=== PATIENT | female | born 1995 | race Caucasian/White ===

== ENCOUNTER 2017-03-02 02:53 | Inpatient (IN) ==
[2017-03-02] MEDS ORDERED: HUMALOG IV ONE (03:00)
[2017-03-02] MEDS ORDERED: NS 1,000 ML IV ONE ×2 (03:01→05:01)
[2017-03-02] MEDS ORDERED: NS 1,000 ML ONE (03:13)
[2017-03-02 03:24] LABS: MANUAL DIFF NEEDED? NO
[2017-03-02 03:25] LABS: BASO% 0.2 % (0.0-0.8); EOS# 0.08 X1000 (0.0-0.7); EOS% 0.8 % (0.0-10.0); HEMATOCRIT 44.2 % (37.0-47.0); HEMOGLOBIN 15.3 g/dL (12.0-16.0); IMM GRAN# 0.03 X1000 (0.0-0.04); IMM GRAN% 0.3 % (0.0-0.5); LYMPH# 2.47 X1000 (1.2-3.4); MCH 29.7 PG (27-31); MCHC 34.6 g/dL (33-37); MCV 85.8 FL (81-99); MONO# 0.42 X1000 (0.11-0.59); MONO% 4.4 % (1.7-9.3); MPV 9.9 FL (7.4-10.4); NEUT% 68.3 % (42.2-75.2); PLT 376 X1000 (130-400); RBC 5.15 XMIL (4.2-5.4)
[2017-03-02 03:34] LABS: ALLEN TEST YES; BE -18.7 mmoll (-3.0-3.0); BLOOD TYPE ARTERIAL; DRAW SITE R RADIAL; METHB 1.1 % (0.0-1.5); O2(CT) 20.1 mL/dL (15.0-23.0); PO2(98.6) 95 mmHg (60-100); SAMPLE BLOOD; SAO2 98.2 % (95.0-100.0); THB 14.9 g/dL (11.5-17.4)
[2017-03-02 03:35] LABS: PCO2(98.6) 19 mmHg (35-45); pH(98.6) 7.19 (7.35-7.45)
[2017-03-02 03:36] LABS: MODALITY ROOM AIR
[2017-03-02] MEDS: HUMULIN R 100 UNIT in NS 99 ML IV SCH ×3 (03:45→05:46)
[2017-03-02 03:51] LABS: URINE CULTURE NEEDED? NO; URINE MICRO REVIEW NEEDED? NO; URINE SOURCE CLEAN CATCH
[2017-03-02 03:53] LABS: BILIRUBIN URINE NEGATIVE (NEGATIVE); BLOOD URINE MODERATE (NEGATIVE); COLOR STRAW; GLUCOSE URINE >1000 mg/dL (NEGATIVE); LEUKOCYTES URINE NEGATIVE (NEGATIVE); NITRITE URINE NEGATIVE (NEGATIVE); PH URINE 5.5; PROTEIN URINE NEGATIVE (NEGATIVE); SP GRAVITY URINE 1.024; TURBIDITY URINE CLEAR (CLEAR); UROBILINOGEN URINE NORMAL (NORMAL)
[2017-03-02 03:54] LABS: UR EPITHELIAL CELLS <10 /HPF (<10); URINE BACTERIA NEGATIVE /HPF; URINE RBC <10 /HPF (<10); URINE WBC <10 /HPF (<10)
[2017-03-02 04:10] LABS: ACETONE SERUM SMALL (NEGATIVE)
[2017-03-02 04:50] LABS: AGAP 34; ALBUMIN 4.3 g/dL (3.5-5.0); ALKALINE PHOSPHATASE 67 U/L (32-104); BUN 21 mg/dL (8-22); CHLORIDE 89 mmol/L (98-107); COSMO 296; GOT 15 U/L (10-30); GPT 17 U/L (10-36); MAGNESIUM 2.1 mg/dL (1.5-2.7); POTASSIUM 5.1 mmol/L (3.5-5.1); SODIUM 133 mmol/L (136-145); TCO2 10 mmol/L (25-35); TOTAL BILIRUBIN 0.74 mg/dL (0.20-1.00); TOTAL PROTEIN 7.4 g/dL (6.3-8.3)
[2017-03-02] MEDS ORDERED: ZOFRAN IV PRN ×2 (05:08→08:23)
--- NOTE | 2017-03-02 05:13 | EKG Report ---
Test Performed on : 03/02/2017 03:00:06 AM Test Reason : chest pain Blood Pressure : / mmHG Vent. Rate : 134 BPM Atrial Rate : 134 BPM P-R Int : 128 ms QRS Dur : 072 ms QT Int : 310 ms P-R-T Axes : 076 077 069 degrees QTc Int : 462 ms Sinus tachycardia. Possible Left atrial enlargement Borderline ECG When compared with ECG of 15-JAN-2016 06:59, Nonspecific T wave abnormality no longer evident in Inferior leads T wave amplitude has increased in Anterolateral leads Unconfirmed Result
[2017-03-02 05:33] LABS: ALLEN TEST YES; BE -13.2 mmoll (-3.0-3.0); BLOOD TYPE ARTERIAL; DRAW SITE R RADIAL; METHB 1.1 % (0.0-1.5); O2(CT) 17.3 mL/dL (15.0-23.0); PCO2(98.6) 23 mmHg (35-45); PO2(98.6) 108 mmHg (60-100); SAMPLE BLOOD; SAO2 99.3 % (95.0-100.0); THB 12.6 g/dL (11.5-17.4)
[2017-03-02 05:34] LABS: MODALITY ROOM AIR
[2017-03-02] MEDS ORDERED: D5W 0 ML ONE (06:58)
[2017-03-02] MEDS ORDERED: SODIUM CHLORIDE ONE (07:00)
[2017-03-02] MEDS ORDERED: DEXTROSE ONE (07:00)
[2017-03-02 07:18] LABS: AGAP 17; BUN 17 mg/dL (8-22); CALCIUM 8.4 mg/dL (8.8-10.2); CHLORIDE 109 mmol/L (98-107); COSMO 284; MAGNESIUM 1.8 mg/dL (1.5-2.7); POTASSIUM 4.3 mmol/L (3.5-5.1); SODIUM 139 mmol/L (136-145); TCO2 13 mmol/L (25-35)
[2017-03-02] MEDS: HUMULIN R SUBQ SCH ×4 (08:21→23:09)
[2017-03-02] MEDS ORDERED: LANTUS SUBQ ONE (08:22)
[2017-03-02 23:38] LABS: AGAP 14; BUN 8 mg/dL (8-22); CALCIUM 8.5 mg/dL (8.8-10.2); CHLORIDE 102 mmol/L (98-107); COSMO 272; POTASSIUM 3.7 mmol/L (3.5-5.1); SODIUM 135 mmol/L (136-145); TCO2 19 mmol/L (25-35)
[2017-03-03 05:44] LABS: MANUAL DIFF NEEDED? NO
[2017-03-03 05:52] LABS: BASO% 0.5 % (0.0-0.8); EOS# 0.12 X1000 (0.0-0.7); EOS% 1.9 % (0.0-10.0); HEMATOCRIT 38.4 % (37.0-47.0); HEMOGLOBIN 13.4 g/dL (12.0-16.0); LYMPH# 2.62 X1000 (1.2-3.4); LYMPH% 41.7 % (20.5-51.1); MCH 29.5 PG (27-31); MCHC 34.9 g/dL (33-37); MCV 84.4 FL (81-99); MONO# 0.34 X1000 (0.11-0.59); MONO% 5.4 % (1.7-9.3); MPV 9.2 FL (7.4-10.4); NEUT% 50.5 % (42.2-75.2); PLT 284 X1000 (130-400); RBC 4.55 XMIL (4.2-5.4)
[2017-03-03 06:26] LABS: AGAP 16; ALBUMIN 3.4 g/dL (3.5-5.0); BUN 8 mg/dL (8-22); CALCIUM 8.4 mg/dL (8.8-10.2); CHLORIDE 101 mmol/L (98-107); COSMO 277; POTASSIUM 3.8 mmol/L (3.5-5.1); SODIUM 137 mmol/L (136-145); TCO2 20 mmol/L (25-35)
[2017-03-03] MEDS: HUMULIN R SUBQ SCH ×2 (06:50→11:07)
[2017-03-03 07:57] VITALS: BP 116/78
[2017-03-03] MEDS ORDERED: D5 NS 1,000 ML IV SCH (09:17)
[2017-03-03] MEDS ORDERED: SODIUM PHOSPHATE 30 MMOL in D5W 250 ML IV PRN (09:17)
[2017-03-03] MEDS ORDERED: SODIUM BICARBONATE 8.4% 50 MEQ in D5W 250 ML IV PRN (09:17)
[2017-03-03] MEDS ORDERED: SODIUM BICARBONATE 8.4% 100 MEQ in D5W 500 ML IV PRN (09:17)
[2017-03-03] MEDS ORDERED: MAGNESIUM SULFATE 2 GM/S.W.I. 2 GM/50 ML IVPB IV PRN (09:17)
[2017-03-03] MEDS ORDERED: D50W SYRINGE IV PRN (09:17)
== END 2017-03-03 12:22 | disposition home or self-care (01) ==
LOC: ED 02:53 → SUATTDRO 05:51 → EDIPHOLD 05:51 → 4N 10:04
PROVIDERS: ATTEND Internal Medicine